=== PATIENT | male | born 1935 | race Caucasian/White ===

== ENCOUNTER → 2022-10-02 | Outpatient (CLI) | payer MEDICARE, OTHER ==
[2022-10-02 13:06] LABS: African American GFR (CKD) 61 (>60 ml/min/1.73 sqM); Blood Urea Nitrogen 35 mg/dL (9-20); Non-African American GFR(CKD) 52 (>60 ml/min/1.73 sqM)
--- NOTE | 2022-10-02 13:58 | CT ---
EXAMINATION TYPE: CT angio neck DATE OF EXAM: 10/02/2022 COMPARISON: None HISTORY: carotid stenosis CT DLP: 303.6 mGycm CONTRAST: CTA cervical carotids is performed and with IV Contrast, patient injected with 65cc mL of Isovue 370. Contrast CTA of the cervical carotids was performed 3-D reconstruction imaging obtained at a separate workstation. Right carotid system: Mild plaque is seen of the right common carotid artery. There is mild plaque a lso noted at the carotid bulb. Estimated diameter reduction is less than 40%. ECA is patent. Righ t vertebral artery appears unremarkable. Left carotid system: Mild plaque is seen of the left common carotid artery. There is moderate soft a nd partially calcified plaque also noted at the carotid bulb. Estimated diameter reduction is 80%. ECA is patent. Left vertebral artery appears unremarkable. IMPRESSION: 1. Estimated diameter reduction Right ICA less than 40% 2. Estimated diameter reduction Left ICA 80% NASCET criteria was used in interpretation of this exam?
== END | disposition home or self-care (01) ==
LOC: RADCTMAIN 12:17
PROVIDERS: ATTEND Internal Medicine
DX: I65.23 Occlusion and stenosis of bilateral carotid arteries (principal)
CPT/HCPCS: 82565; 84520; 70498; 36415; Q9967

== ENCOUNTER 2022-10-27 10:01 | Inpatient (IN) | payer MEDICARE, OTHER ==
[~2022-10-27 10:01] MED LIST: ALPRAZolam 0.25 MG TAB PO PRN; ALPRAZolam 0.5 MG TAB PO PRN; ASPIRIN 81 MG PO PRN; CLOPIDOGREL 75 MG TAB PO PRN; NITROGLYCERIN SL TABS 0.4 MG TAB SUBLINGUAL PRN; RX INFO: IV CONTRAST WAS GIVEN 1 EACH MISC MISCELLANE PRN; SODIUM CHLORIDE 0.9% 1,000 ML in EMPTY BAG 1 BAG IV ONE
[2022-10-27 10:34] LABS: Basophils % (A) 1 %; Eosinophils # (A) 0.1 k/uL (0-0.7); Eosinophils % (A) 2 %; HCT 31.3 % (39.0-53.0); HGB 10.6 gm/dL (13.0-17.5); Lymphocytes # (A) 2.1 k/uL (1.0-4.8); Lymphocytes % (A) 34 %; MCH 31.6 pg (25.0-35.0); Mean Platelet Volume 9.1; Monocytes # (A) 0.3 k/uL (0-1.0); Monocytes % (A) 4 %; Neutrophils # (A) 3.5 k/uL (1.3-7.7); Neutrophils % (A) 57 %; Platelet Count 134 k/uL (150-450); RBC 3.36 m/uL (4.30-5.90); RDW 13.3 % (11.5-15.5); WBC 6.2 k/uL (3.8-10.6)
[2022-10-27] MEDS ORDERED: LIDOCAINE 1% INJ 10MG/ML (20 ML MDV) ONE (11:44)
[2022-10-27] MEDS ORDERED: LIDOCAINE 1% INJ 10MG/ML (20 ML MDV) SQ ONE (12:17)
[2022-10-27] MEDS ORDERED: CLOPIDOGREL 75 MG TAB ONE ×2 (12:17→12:18)
[2022-10-27] MEDS ORDERED: CLOPIDOGREL 75 MG TAB PO ONE (12:23)
[2022-10-27] MEDS ORDERED: HEPARIN SODIUM 1,000 UN/ML (10ML VL) ONE (12:27)
[2022-10-27] MEDS: HEPARIN SODIUM 1,000 UN/ML (10ML VL) IV ONE ×5 (12:29→13:30)
[2022-10-27] MEDS ORDERED: ATROPINE SULFATE 0.1 MG/ML 10ML SYRINGE IVP ONE (13:30)
[2022-10-27] MEDS ORDERED: IOPAMIDOL-370 100ML BTL INJ ONE (13:36)
[2022-10-27] MEDS ORDERED: MAG HYDROX/AL HYDROX/SIMETH 30 ML CUP PO PRN (14:19)
[2022-10-27] MEDS ORDERED: ATROPINE SULFATE 0.1 MG/ML 10ML SYRINGE IV PRN (14:19)
[2022-10-27] MEDS ORDERED: SODIUM CHLORIDE 0.9% 1,000 ML IV SCH (14:30)
[2022-10-27] MEDS ORDERED: hydrALAZINE HCL 20 MG/ML 1 ML VIAL IVP STA (15:03)
[2022-10-27] MEDS: LOSARTAN 50 MG TAB PO SCH (15:14)
[2022-10-27] MEDS ORDERED: ACETAMINOPHEN TAB 325 MG TAB PO PRN (15:18)
--- NOTE | 2022-10-27 16:06 | P.PCN ---
Description of Procedure: PROCEDURES PERFORMED: Selective left carotid angiography, carotid stenting of left internal carotid artery with a 7-10 x 30mm Acculink, post dilated with a 5.0 balloon INDICATION: Severe asymptomatic carotid artery stenosis CONSENT:I have discussed the risks, benefits and alternative therapies for the above-mentioned procedure and for both sedation/analgesia as well as necessary blood product administration, if indicated, as they pertain to this patient. The patient has indicated understanding and acceptance of the risks and p rocedures discussed. PROCEDURE: After the risks, benefits and alternatives of the above mentioned procedure explained in detail with the patient, informed consent was obtained. Patient was taken to the catheterization lab and prepped and draped in usual fashion. 1% lidocaine was used to anesthetize the right femoral area. A 6- Ivorian sheath was placed in the right femoral artery using modified Seldinger technique. Next using VTK catheter the proximal left internal carotid arteries were engaged and selective angiography was performed. Angiography showed severe 80% stenosis of the proximal left internal carotid artery. The decision was made to perform carotid stenting of the left carotid artery. Shortly attempted to advance the VTK over a wide advantage wire however there was a type III aortic arch with difficulty advancing the catheter. Second attempt was at performed however again unsuccessful. Heparin was given. Therefore a long 8-Ivorian destination sheath was placed and using a 8-Ivorian FR 4 guide catheter, with a 4.0 balloon in the left external carotid artery with gentle inflation to anchor, we were able to advance the 8-Ivorian catheter up into the left common carotid artery. Next a 0.014 Emboshield MOHAMUD filter was advanced and placed in the petrous portion of the left internal carotid artery. Predilation was performed with a 4.0 balloon. Next a 7-10 x 30mm Acculink stent was advanced and deployed with stent moving somewhat more cephalad however covering the origin of the left internal carotid artery into the common carotid artery. This time was postdilated with a 5.0 balloon. Final angiograms were performed. The filter was retrieved. Preintervention there is a 80% stenosis and postintervention there is less than 20% stenosis without any dissection. A right femoral angiogram was performed and anatomoy was suitable for closure. A 6Fr Angioseal was placed with hemostasis achieved. The patient tolerated the procedure well. Patient was transported back to the post catheterization holding area in stable condition. Conscious Sedation: Patient was monitored under the direct supervision of vision of myself for conscious sedation using Versed and fentanyl for a total duration of 86 minutes FINAL IMPRESSION: 1. 80% left internal carotid artery stenosis status post carotid stenting of left internal carotid artery with a 7-10 x 30mm Acculink PLAN: 1. Aggressive risk factor modification per most recent ACC/AHA guidelines. 2. Continue Plavix and Eliquis for minimum of 3 months.
[2022-10-27] MEDS: GABAPENTIN 300 MG CAP PO SCH (20:14)
[2022-10-27] MEDS ORDERED: TAMSULOSIN 0.4 MG CAP.ER.24H PO SCH (21:00)
[2022-10-27] MEDS ORDERED: ASPIRIN 81 MG PO SCH (21:00)
[2022-10-27] MEDS ORDERED: MELOXICAM 7.5 MG TAB PO SCH (21:00)
[2022-10-28 04:33] VITALS: RESP 16
[2022-10-28] MEDS: LOSARTAN 50 MG TAB PO SCH (07:33)
[2022-10-28] MEDS: GABAPENTIN 300 MG CAP PO SCH (07:34)
[2022-10-28 07:41] VITALS: BP 150/76; PULSE 54; TEMP 97.7
[2022-10-28 08:56] LABS: Basophils % (A) 0 %; Eosinophils # (A) 0.2 k/uL (0-0.7); Eosinophils % (A) 3 %; HCT 29.6 % (39.0-53.0); HGB 9.8 gm/dL (13.0-17.5); Lymphocytes # (A) 1.8 k/uL (1.0-4.8); Lymphocytes % (A) 32 %; MCHC 33.1 g/dL (31.0-37.0); MCV 93.5 fL (80.0-100.0); Mean Platelet Volume 8.6; Monocytes # (A) 0.3 k/uL (0-1.0); Monocytes % (A) 6 %; Neutrophils # (A) 3.1 k/uL (1.3-7.7); Neutrophils % (A) 57 %; Platelet Count 131 k/uL (150-450); RBC 3.16 m/uL (4.30-5.90); RDW 13.4 % (11.5-15.5); WBC 5.4 k/uL (3.8-10.6)
[2022-10-28] MEDS ORDERED: ATORVASTATIN 10 MG TAB PO SCH (09:00)
[2022-10-28] MEDS ORDERED: APIXABAN 5 MG TAB PO SCH (09:00)
[2022-10-28] MEDS ORDERED: FERROUS SULFATE 325 MG TAB PO SCH (09:00)
[2022-10-28] MEDS ORDERED: CLOPIDOGREL 75 MG TAB PO SCH (09:00)
[2022-10-28] MEDS ORDERED: FINASTERIDE 5 MG TAB PO SCH (09:00)
[2022-10-28 09:07] LABS: African American GFR (CKD) 71 (>60 ml/min/1.73 sqM); Anion Gap 8 mmol/L; Blood Urea Nitrogen 34 mg/dL (9-20); Calcium 8.3 mg/dL (8.4-10.2); Carbon Dioxide 24 mmol/L (22-30); Chloride 108 mmol/L (98-107); Glucose 152 mg/dL (74-99); Non-African American GFR(CKD) 62 (>60 ml/min/1.73 sqM); Potassium 4.1 mmol/L (3.5-5.1); Sodium 140 mmol/L (137-145)
--- NOTE | 2022-10-28 12:32 | P.DS ---
Providers Date of admission: 10/27/22 10:01 Attending physician: Zack Umana DO Primary care physician: Oscar Johansen MD Hospital Course: This is Jesus Manuel Rodriguez, DYLAN, I'm dictating on behalf of Dr. Conte's H&P and A&P. Patient was interviewed and examined. Patient is a pleasant 87-year-old male who was admitted to the hospital by interventional cardiology for selective left carotid angiography, carotid stenting of left internal carotid artery with a 7-1030 mm Acculink, postdilated with a 5.0 balloon. Patient was found to have 80% left internal carotid artery stenosis status post carotid stenting of left internal carotid artery. Patient tolerated the procedure well, and this morning states that he is feeling fine today. He is denying chest pain, heart palpitations, shortness of breath, dizziness, or syncope. Vital signs are stable at this time. Discharge recommendations include aggressive risk factor modification per most recent ACC/AHA guidelines, as well as starting Plavix and continuing Eliquis for at least 3 months. GENERAL: Well-appearing, well-nourished and in no acute distress. NECK: Supple without JVD or thyromegaly. LUNGS: Breath sounds clear to auscultation bilaterally. Respiration equal and unlabored. No wheezes, rales or rhonchi. HEART: Regular rate and rhythm without murmurs, rubs or gallops. S1 and S2 heard. EXTREMITIES: Normal range of motion, no edema. No clubbing or cyanosis. Peripheral pulses intact and strong. VITALS: Temp 97.7, pulse 54, respirations 16, blood pressure 150/76, O2 saturation 98% on room air TELEMETRY: Normal sinus rhythm LABS: White count 5.4, hemoglobin 9.8, platelets 131, sodium 140, potassium 4.1, B1 34, creatinine 1.07, calcium 8.3 IMPRESSION: 1. Hypertension 2. Hyperlipidemia 3. History of multiple pulmonary emboli on [place] 4. CAD status post PCI in 2006 5. Dyspnea 6. Bradycardia 7. Left carotid artery stenosis, severe PLAN: Aggressive risk factor modification per most recent ACC/AHA guidelines. Continue Eliquis. Start Plavix 75 mg daily. Follow-up with Dr. Umana in the office. Patient may be discharged. Patient Condition at Discharge: Good Plan - Discharge Summary Discharge Rx Participant: No New Discharge Prescriptions: New Clopidogrel [Plavix] 75 mg PO DAILY #30 tablet Discontinued Aspirin [Adult Low Dose Aspirin EC] 81 mg PO HS No Action Gabapentin 300 mg PO BID Apixaban [Eliquis] 5 mg PO BID Oxybutynin Chloride [oxyBUTYnin chloride ER] 10 mg PO HS Simvastatin [Zocor] 20 mg PO QAM Celecoxib 100 mg PO HS Losartan [Cozaar] 100 mg PO QAM Iron 27 mg PO QAM Cyanocobalamin (Vitamin B-12) [Vitamin B-12] 25 mcg PO HS Tamsulosin [Flomax] 0.4 mg PO HS Finasteride [Proscar] 5 mg PO QAM Eye Health Complex 1 cap PO BID Discharge Medication List Apixaban [Eliquis] 5 mg PO BID 10/24/22 [History] Celecoxib 100 mg PO HS 10/24/22 [History] Cyanocobalamin (Vitamin B-12) [Vitamin B-12] 25 mcg PO HS 10/24/22 [History] Eye Health Complex 1 cap PO BID 10/24/22 [History] Finasteride [Proscar] 5 mg PO QAM 10/24/22 [History] Gabapentin 300 mg PO BID 10/24/22 [History] Iron 27 mg PO QAM 10/24/22 [History] Losartan [Cozaar] 100 mg PO QAM 10/24/22 [History] Oxybutynin Chloride [oxyBUTYnin chloride ER] 10 mg PO HS 10/24/22 [History] Simvastatin [Zocor] 20 mg PO QAM 10/24/22 [History] Tamsulosin [Flomax] 0.4 mg PO HS 10/24/22 [History] Clopidogrel [Plavix] 75 mg PO DAILY #30 tablet 10/28/22 [Rx] Follow up Appointment(s)/Referral(s): Zack Umana DO [STAFF PHYSICIAN] - 1 Week (APPOINTMENT MADE ON October @ 9:45AM ) Patient Instructions/Handouts: Carotid Artery Disease (DC), Moderate Sedation (DC), Carotid Artery Stent Placement (DC) Activity/Diet/Wound Care/Special Instructions: *NO LIFTING, PUSHING, OR PULLING ANYTHING OVER 5 POUNDS FOR 5 DAYS *NO DRIVING FOR 3 DAYS *YOU CAN REMOVE YOUR DRESSING TOMORROW AND YOU CAN SHOWER AT THAT TIME BUT DO NOT SUBMERSE YOUR PUNCTURE SITE IN WATER FOR A FEW DAYS TO PREVENT INFECTION - SO NO TUB BATHS, POOLS, HOT TUBS, DISHES...ETC *ANY SIGNS OF BLEEDING (HARDNESS, SWELLING, OR EXCESSIVE BRUISING) HOLD DIRECT PRESSURE ON YOUR PUNCTURE SITE AND COME TO THE NEAREST EMERGENCY ROOM TO GET YOUR PUNCTURE SITE LOOKED AT - DO NOT DRIVE YOURSELF! EITHER CALL EMS OR HAVE SOMEONE DRIVE YOU! Discharge Disposition: HOME SELF-CARE
--- NOTE | 2022-10-29 18:15 | IR ---
EXAMINATION TYPE: IR stent intravas non coronary DATE OF EXAM: 10/27/2022 COMPARISON: NONE HISTORY: Carotid stenosis, 31.4 minutes fluoroscopy time, total DAP 47.2 Gycm2. Fluoroscopy was provided to the referring clinician.
== END 2022-10-28 11:25 | disposition home or self-care (01) | DRG 36 ==
LOC: 2ORMAIN 10:01 → 3SCARD 14:10
PROVIDERS: ADMIT Internal Medicine; ATTEND Internal Medicine
PROC: 037 Upper Arteries, Dilation (ICD-10-PCS; principal; 2022-10-27 12:00)
DX: I65.22 Occlusion and stenosis of left carotid artery (principal); I25.10 Atherosclerotic heart disease of native coronary artery without angina pectoris; E78.5 Hyperlipidemia, unspecified; I10 Essential (primary) hypertension; Z86.711 Personal history of pulmonary embolism; Z98.61 Coronary angioplasty status; R00.1 Bradycardia, unspecified; Z79.01 Long term (current) use of anticoagulants
CPT/HCPCS: 37215; 80048; 84132; 85025

== ENCOUNTER 2023-07-16 20:07 | Inpatient (IN) | payer MEDICARE, OTHER ==
--- NOTE | 2023-07-16 20:18 | ED ---
General Adult HPI <Dwayne Dimas - Last Filed: 07/16/23 20:19> <Ada Graham - Last Filed: 07/23/23 01:23> - General Stated complaint: Dizziness Time Seen by Provider: 07/16/23 20:17 - History of Present Illness Initial comments: 87-year-old male presented to the ED with complaints of dizziness. Patient reports over the last few days he has been feeling dizzy described as feeling as if he is going to pass out/feeling "woozy". No chest pains or shortness of breath. States he saw his junior project manager earlier today and there his heart rate was noted to be 35 and was advised to present to the ED for further evaluation. (Dwayne Dimas) 87-year-old male presents emergency department reporting near syncope. Patient states that he was not feeling well earlier today. He drove himself to his cardiology appointment which was a normal scheduled appointment. He mentioned to his junior project manager that he felt lightheaded. [employer] Developer did complete an EKG and found the patient's heart rate to be 35. Because of this significantly slow heart rate with symptoms, the junior project manager did recommend that the patient be transferred over to the hospital for further evaluation. Patient does not take any AV tanvi blocking agents. He states that his heart rate is normally low however it runs in the 50s. He denies any chest pain. No other alleviating, precipitating or modifying factors (Ada Graham) - Related Data Home Medications Medication Instructions Recorded Confirmed Apixaban [Eliquis] 5 mg PO BID 10/24/22 07/17/23 Finasteride [Proscar] 5 mg PO QAM 10/24/22 07/17/23 Gabapentin 300 mg PO BID 10/24/22 07/17/23 Losartan [Cozaar] 100 mg PO QAM 10/24/22 07/17/23 Oxybutynin Chloride [oxyBUTYnin 10 mg PO HS 10/24/22 07/17/23 chloride ER] Simvastatin [Zocor] 20 mg PO HS 10/24/22 07/17/23 Tamsulosin [Flomax] 0.4 mg PO HS 10/24/22 07/17/23 Furosemide [Lasix] 20 mg PO DAILY 07/17/23 07/17/23 Allergies Allergy/AdvReac Type Severity Reaction Status Date / Time No Known Allergies Allergy Verified 07/17/23 08:01 Review of Systems ROS Other: All systems not noted in ROS Statement are negative. <Dwayne Dimas - Last Filed: 07/16/23 20:19> ROS Other: All systems not noted in ROS Statement are negative. <Ada Graham lIya - Last Filed: 07/23/23 01:23> ROS Statement: Those systems with pertinent positive or pertinent negative responses have been documented in the HPI. Past Medical History Past Medical History: Coronary Artery Disease (CAD), Hyperlipidemia, Hypertension, Pulmonary Embolus (PE), Vascular Disorder Additional Past Medical History / Comment(s): L caratid disease, bradycardia, dyspnea at times, multiple PEs History of Any Multi-Drug Resistant Organisms: None Reported Past Surgical History: Heart Catheterization With Stent, Joint Replacement Additional Past Surgical History / Comment(s): IVC insertion in 2013, 2006 PCI with stent in [place], Total R hip arthroplasty, bilateral total knee arthroplasty Past Anesthesia/Blood Transfusion Reactions: No Reported Reaction Additional Past Anesthesia/Blood Transfusion Reaction / Comment(s): Pt has never received blood. Date of Last Stent Placement:: 2006 Smoking Status: Never smoker - Past Family History Mother Family Medical History: No Reported History Father Additional Family Medical History / Comment(s): at the age of 34yrs from lymphoblastoma. <Dwayne Dimas - Last Filed: 07/16/23 20:19> General Exam <Dwayne Dimas - Last Filed: 07/16/23 20:19> General appearance: alert, in no apparent distress Head exam: Present: atraumatic, normocephalic, normal inspection Eye exam: Present: normal appearance, PERRL, EOMI. Absent: scleral icterus, conjunctival injection, periorbital swelling ENT exam: Present: normal exam, mucous membranes moist Neck exam: Present: normal inspection. Absent: tenderness, meningismus, lymphadenopathy Respiratory exam: Present: normal lung sounds bilaterally. Absent: respiratory distress, wheezes, rales, rhonchi, stridor Cardiovascular Exam: Present: normal rhythm, bradycardia, normal heart sounds. Absent: systolic murmur, diastolic murmur, rubs, gallop, clicks GI/Abdominal exam: Present: soft, normal bowel sounds. Absent: distended, tenderness, guarding, rebound, rigid Extremities exam: Present: normal inspection, full ROM, normal capillary refill. Absent: tenderness, pedal edema, joint swelling, calf tenderness Back exam: Present: normal inspection Neurological exam: Present: alert, oriented X3, CN II-XII intact Psychiatric exam: Present: normal affect, normal mood Skin exam: Present: warm, dry, intact, normal color. Absent: rash <Ada Graham - Last Filed: 07/23/23 01:23> - General Exam Comments Initial Comments: Visual Physical Exam Vital signs reviewed General: Well-appearing, nontoxic, no acute distress. Head: Normocephalic, atraumatic Eyes: PERRLA, EOMI ENT: Airway patent Chest: Nonlabored breathing Skin: No visual rash, normal skin tone Neuro: Alert and oriented 3 Musculoskeletal: No gross abnormalities (Dwayne Dimas) Course Vital Signs 07/16/23 07/16/23 07/17/23 20:28 22:18 01:46 Temperature 99.1 F 98.2 F Pulse Rate 62 43 L Pulse Rate [ 49 L Encoding Machine Operator ] Respiratory 18 16 17 Rate Blood Pressure 133/65 155/81 Blood Pressure 139/73 [Right Arm Sitting] Blood Pressure 147/72 [Right Arm Standing] Blood Pressure 156/74 [Right Arm Supine] O2 Sat by Pulse 97 95 95 Oximetry 07/17/23 07/17/23 07/17/23 04:00 05:43 07:16 Temperature Pulse Rate 48 L 44 L 42 L Pulse Rate [ Encoding Machine Operator ] Respiratory 16 17 16 Rate Blood Pressure 127/70 135/60 144/67 Blood Pressure [Right Arm Sitting] Blood Pressure [Right Arm Standing] Blood Pressure [Right Arm Supine] O2 Sat by Pulse 96 95 97 Oximetry 07/17/23 07/17/23 07/17/23 08:28 10:00 13:14 Temperature Pulse Rate 52 L 61 64 Pulse Rate [ Encoding Machine Operator ] Respiratory 16 18 18 Rate Blood Pressure 159/81 159/81 148/67 Blood Pressure [Right Arm Sitting] Blood Pressure [Right Arm Standing] Blood Pressure [Right Arm Supine] O2 Sat by Pulse 98 97 98 Oximetry Medical Decision Making <Dwayne Dimas - Last Filed: 07/16/23 20:19> - Lab Data Result diagrams: 07/17/23 02:35 07/17/23 02:35 <Ada Graham A - Last Filed: 07/23/23 01:23> - Medical Decision Making Quicknote portion performed. Signed Dwayne Dimas PA-C (Dwayne Dimas) Was pt. sent in by a medical professional or institution ([facility], EMBEDDED ENGINEER, urgent care, hospital, or penitentiary...) When possible be specific @ -Patiet sent in by junior project manager Did you speak to anyone other than the patient for history (EMS, parent, family, police, friend...)? What history was obtained from this source @ -No Did you review nursing and triage notes (agree or disagree)? Why? @ -I reviewed and agree with nursing and triage notes Were old charts reviewed (outside hosp., previous admission, EMS record, old EKG, old radiological studies, urgent care reports/EKG's, penitentiary records)? Report findings @ -No Differential Diagnosis (chest pain, altered mental status, abdominal pain women, abdominal pain men, vaginal bleeding, weakness, fever, dyspnea, syncope, headache, dizziness, GI bleed, back pain, seizure, CVA, palpatations, mental health, musculoskeletal)? @ -Differential Palpitations Ventricular arrhythmias, atrial arrhythmias, myocardial infarction, anemia, thyrotoxicosis, electrolyte imbalance, hypokalemia, pulmonary embolism, pulmonary disease, drugs, alcohol, anxiety, stress.... This is not meant to be an all-inclusive list. EKG interpreted by me (3pts min.). @ -Demonstrates sinus bradycardia with a rate of 55. OR interval 282. QRS 102. QTc of 448. No acute ST segment elevations or depressions X-rays interpreted by me (1pt min.). @ -Yes, No acute process CT interpreted by me (1pt min.). @ -None done U/S interpreted by me (1pt. min.). @ -None done What testing was considered but not performed or refused? (CT, X-rays, U/S, labs)? Why? @ -None What meds were considered but not given or refused? Why? @ -None Did you discuss the management of the patient with other professionals (professionals i.e. , BRIA, EMBEDDED ENGINEER, lab, RT, psych nurse, social services assistant, avionics technician, t myrna, earth science technical officer, director of casework department)? Give summary @ -Kaylee from [facility] Was smoking cessation discussed for >3mins.? @ -No Was critical care preformed (if so, how long)? @ -No Were there social determinants of health that impacted care today? How? (Homelessness, low income, unemployed, alcoholism, drug addiction, transportation, low edu. Level, literacy, decrease access to med. care, long term, rehab)? @ -No Was there de-escalation of care discussed even if they declined (Discuss DNR or withdrawal of care, Hospice)? DNR status @ -No What co-morbidities impacted this encounter? (DM, HTN, Smoking, COPD, CAD, Cancer, CVA, ARF, Chemo, Hep., AIDS, mental health diagnosis, sleep apnea, morbid obesity)? @ -None Was patient admitted / discharged? Hospital course, mention meds given and route, prescriptions, significant lab abnormalities, going to OR and other pertinent info. @ -Patient seen and evaluated in room 12. Heart rate is 55 at this time. Will admit patient for cardiac monitoring and cardio evaluation. Spoke with kaylee for admission Undiagnosed new problem with uncertain prognosis? @ -yes Drug Therapy requiring intensive monitoring for toxicity (Heparin, Nitro, Insulin, Cardizem)? @ -No Were any procedures done? @ -No Diagnosis/symptom? @ -near syncope, bradycardia Acute, or Chronic, or Acute on Chronic? @ -acute Uncomplicated (without systemic symptoms) or Complicated (systemic symptoms)? @ -complicated Side effects of treatment? @ -No Exacerbation, Progression, or Severe Exacerbation? @ -No Poses a threat to life or bodily function? How? (Chest pain, [place], [place], pneumonia, PE, COPD, DKA, ARF, appy, cholecystitis, CVA, Diverticulitis, Homicidal, Suicidal, threat to staff... and all critical care pts) @ -No (Ada Graham) - Lab Data Lab Results 07/16/23 07/16/23 07/16/23 Range/Units 20:33 20:33 20:33 WBC 5.9 (3.8-10.6) k/uL RBC 3.39 L (4.30-5.90) m/uL Hgb 10.3 L (13.0-17.5) gm/dL Hct 31.8 L (39.0-53.0) % MCV 93.9 (80.0-100.0) fL MCH 30.4 (25.0-35.0) pg MCHC 32.4 (31.0-37.0) g/dL RDW 12.7 (11.5-15.5) % Plt Count 167 (150-450) k/uL MPV 7.9 Neutrophils % 56 % Lymphocytes % 30 % Monocytes % 6 % Eosinophils % 6 % Basophils % 1 % Neutrophils # 3.3 (1.3-7.7) k/uL Lymphocytes # 1.8 (1.0-4.8) k/uL Monocytes # 0.4 (0-1.0) k/uL Eosinophils # 0.3 (0-0.7) k/uL Basophils # 0.0 (0-0.2) k/uL PT 10.4 (10.0-12.5) sec INR 0.9 (<1.2) APTT 22.6 (22.0-30.0) sec Sodium 139 (137-145) mmol/L Potassium 3.8 (3.5-5.1) mmol/L Chloride 105 (98-107) mmol/L Carbon Dioxide 26 (22-30) mmol/L Anion Gap 8 mmol/L BUN 32 H (9-20) mg/dL Creatinine 1.18 (0.66-1.25) mg/dL Est GFR (CKD-EPI)AfAm 63 (>60 ml/min/1.73 sqM) Est GFR (CKD-EPI)NonAf 54 (>60 ml/min/1.73 sqM) Glucose 142 H (74-99) mg/dL Calcium 8.5 (8.4-10.2) mg/dL Magnesium 1.9 (1.6-2.3) mg/dL Total Bilirubin 0.5 (0.2-1.3) mg/dL AST 28 (17-59) U/L ALT 16 (4-49) U/L Alkaline Phosphatase 70 (38-126) U/L Troponin I (0.000-0.034) ng/mL Total Protein 6.6 (6.3-8.2) g/dL Albumin 3.6 (3.5-5.0) g/dL TSH (0.465-4.680) mIU/L 07/16/23 07/16/23 07/17/23 Range/Units 20:33 20:33 02:35 WBC (3.8-10.6) k/uL RBC (4.30-5.90) m/uL Hgb (13.0-17.5) gm/dL Hct (39.0-53.0) % MCV (80.0-100.0) fL MCH (25.0-35.0) pg MCHC (31.0-37.0) g/dL RDW (11.5-15.5) % Plt Count (150-450) k/uL MPV Neutrophils % % Lymphocytes % % Monocytes % % Eosinophils % % Basophils % % Neutrophils # (1.3-7.7) k/uL Lymphocytes # (1.0-4.8) k/uL Monocytes # (0-1.0) k/uL Eosinophils # (0-0.7) k/uL Basophils # (0-0.2) k/uL PT (10.0-12.5) sec INR (<1.2) APTT (22.0-30.0) sec Sodium (137-145) mmol/L Potassium (3.5-5.1) mmol/L Chloride (98-107) mmol/L Carbon Dioxide (22-30) mmol/L Anion Gap mmol/L BUN (9-20) mg/dL Creatinine (0.66-1.25) mg/dL Est GFR (CKD-EPI)AfAm (>60 ml/min/1.73 sqM) Est GFR (CKD-EPI)NonAf (>60 ml/min/1.73 sqM) Glucose (74-99) mg/dL Calcium (8.4-10.2) mg/dL Magnesium (1.6-2.3) mg/dL Total Bilirubin (0.2-1.3) mg/dL AST (17-59) U/L ALT (4-49) U/L Alkaline Phosphatase (38-126) U/L Troponin I <0.012 <0.012 (0.000-0.034) ng/mL Total Protein (6.3-8.2) g/dL Albumin (3.5-5.0) g/dL TSH 2.620 (0.465-4.680) mIU/L 07/17/23 07/17/23 07/17/23 Range/Units 02:35 02:35 09:31 WBC 5.8 (3.8-10.6) k/uL RBC 3.14 L (4.30-5.90) m/uL Hgb 9.6 L (13.0-17.5) gm/dL Hct 29.8 L (39.0-53.0) % MCV 94.9 (80.0-100.0) fL MCH 30.7 (25.0-35.0) pg MCHC 32.3 (31.0-37.0) g/dL RDW 12.8 (11.5-15.5) % Plt Count 144 L (150-450) k/uL MPV 8.1 Neutrophils % 54 % Lymphocytes % 30 % Monocytes % 6 % Eosinophils % 8 % Basophils % 1 % Neutrophils # 3.1 (1.3-7.7) k/uL Lymphocytes # 1.7 (1.0-4.8) k/uL Monocytes # 0.4 (0-1.0) k/uL Eosinophils # 0.4 (0-0.7) k/uL Basophils # 0.0 (0-0.2) k/uL PT (10.0-12.5) sec INR (<1.2) APTT (22.0-30.0) sec Sodium 140 (137-145) mmol/L Potassium 3.6 (3.5-5.1) mmol/L Chloride 109 H (98-107) mmol/L Carbon Dioxide 29 (22-30) mmol/L Anion Gap 2 mmol/L BUN 30 H (9-20) mg/dL Creatinine 1.20 (0.66-1.25) mg/dL Est GFR (CKD-EPI)AfAm 62 (>60 ml/min/1.73 sqM) Est GFR (CKD-EPI)NonAf 53 (>60 ml/min/1.73 sqM) Glucose 128 H (74-99) mg/dL Calcium 8.2 L (8.4-10.2) mg/dL Magnesium (1.6-2.3) mg/dL Total Bilirubin (0.2-1.3) mg/dL AST (17-59) U/L ALT (4-49) U/L Alkaline Phosphatase (38-126) U/L Troponin I <0.012 (0.000-0.034) ng/mL Total Protein (6.3-8.2) g/dL Albumin (3.5-5.0) g/dL TSH (0.465-4.680) mIU/L Disposition <Dwayne Dimas - Last Filed: 07/16/23 20:19> Is patient prescribed a controlled substance at d/c from ED?: No Time of Disposition: 22:07 Decision to Admit Reason: Admit from EC Decision Date: 07/16/23 Decision Time: 22:07 <Ada Graham - Last Filed: 07/23/23 01:23> Clinical Impression: Bradycardia Disposition: ADMITTED IP TO THIS HOSP Condition: Stable
[2023-07-16 20:58] LABS: Basophils % (A) 1 %; Eosinophils # (A) 0.3 k/uL (0-0.7); Eosinophils % (A) 6 %; HCT 31.8 % (39.0-53.0); HGB 10.3 gm/dL (13.0-17.5); Lymphocytes # (A) 1.8 k/uL (1.0-4.8); Lymphocytes % (A) 30 %; MCH 30.4 pg (25.0-35.0); MCHC 32.4 g/dL (31.0-37.0); MCV 93.9 fL (80.0-100.0); Mean Platelet Volume 7.9; Monocytes # (A) 0.4 k/uL (0-1.0); Monocytes % (A) 6 %; Neutrophils # (A) 3.3 k/uL (1.3-7.7); Neutrophils % (A) 56 %; Platelet Count 167 k/uL (150-450); RBC 3.39 m/uL (4.30-5.90); RDW 12.7 % (11.5-15.5); WBC 5.9 k/uL (3.8-10.6)
[2023-07-16 21:06] LABS: INR 0.9 (<1.2); Partial Thromboplastin Time 22.6 sec (22.0-30.0); Prothrombin Time 10.4 sec (10.0-12.5)
[2023-07-16 21:11] LABS: ALT 16 U/L (4-49); AST 28 U/L (17-59); African American GFR (CKD) 63 (>60 ml/min/1.73 sqM); Albumin 3.6 g/dL (3.5-5.0); Alkaline Phosphatase 70 U/L (38-126); Anion Gap 8 mmol/L; Blood Urea Nitrogen 32 mg/dL (9-20); Calcium 8.5 mg/dL (8.4-10.2); Carbon Dioxide 26 mmol/L (22-30); Chloride 105 mmol/L (98-107); Glucose 142 mg/dL (74-99); Magnesium 1.9 mg/dL (1.6-2.3); Non-African American GFR(CKD) 54 (>60 ml/min/1.73 sqM); Potassium 3.8 mmol/L (3.5-5.1); Sodium 139 mmol/L (137-145); Total Bilirubin 0.5 mg/dL (0.2-1.3); Total Protein 6.6 g/dL (6.3-8.2)
--- NOTE | 2023-07-16 21:42 | XR ---
EXAMINATION TYPE: XR chest 2V DATE OF EXAM: 07/16/2023 9:13 PM CLINICAL INDICATION:Male, 87 years old with history of Chest Pain; [facility] COMPARISON: Chest radiographs from 07/16/2023 TECHNIQUE: XR chest 2V Frontal and lateral views of the chest. FINDINGS: Lungs/Pleura: There is no evidence of pleural effusion, focal consolidation, or pneumothorax. Pulmonary vascularity: Unremarkable. Heart/mediastinum: Cardiomediastinal silhouette is unremarkable. Musculoskeletal: No acute osseous pathology. Other findings: None IMPRESSION: No acute cardiopulmonary disease/process.
[2023-07-16] MEDS ORDERED: NALOXONE 0.4 MG/ML 1 ML VIAL IV PRN (22:10)
[2023-07-17 03:06] LABS: Basophils % (A) 1 %; Eosinophils # (A) 0.4 k/uL (0-0.7); Eosinophils % (A) 8 %; HCT 29.8 % (39.0-53.0); HGB 9.6 gm/dL (13.0-17.5); Lymphocytes # (A) 1.7 k/uL (1.0-4.8); Lymphocytes % (A) 30 %; MCH 30.7 pg (25.0-35.0); MCHC 32.3 g/dL (31.0-37.0); MCV 94.9 fL (80.0-100.0); Mean Platelet Volume 8.1; Monocytes # (A) 0.4 k/uL (0-1.0); Monocytes % (A) 6 %; Neutrophils # (A) 3.1 k/uL (1.3-7.7); Neutrophils % (A) 54 %; Platelet Count 144 k/uL (150-450); RBC 3.14 m/uL (4.30-5.90); RDW 12.8 % (11.5-15.5); WBC 5.8 k/uL (3.8-10.6)
[2023-07-17 03:17] LABS: African American GFR (CKD) 62 (>60 ml/min/1.73 sqM); Anion Gap 2 mmol/L; Blood Urea Nitrogen 30 mg/dL (9-20); Calcium 8.2 mg/dL (8.4-10.2); Carbon Dioxide 29 mmol/L (22-30); Chloride 109 mmol/L (98-107); Glucose 128 mg/dL (74-99); Non-African American GFR(CKD) 53 (>60 ml/min/1.73 sqM); Potassium 3.6 mmol/L (3.5-5.1); Sodium 140 mmol/L (137-145)
[2023-07-17] MEDS: FUROSEMIDE 20 MG TAB PO SCH (08:26)
[2023-07-17] MEDS: LOSARTAN 50 MG TAB PO SCH (08:28)
--- NOTE | 2023-07-17 09:32 | US ---
EXAMINATION TYPE: US carotid duplex BILAT DATE OF EXAM: 07/17/2023 COMPARISON: NONE CLINICAL INDICATION: Male, 87 years old with history of syncope; h/o left ICA stenting, stroke years ago TECHNIQUE: Carotid duplex ultrasound examination. Indirect Doppler criteria was utilized. FINDINGS: EXAM MEASUREMENTS: RIGHT: Peak Systolic Velocity (PSV) cm/sec ----- Right CCA: 66.8 ----- Right ICA: 119.4 ----- Right ECA: 82.8 ICA/CCA ratio: 1.8 RIGHT: End Diastole cm/sec ----- Right CCA: 15.4 ----- Right ICA: 31.5 ----- Right ECA: 6.9 LEFT: Peak Systolic Velocity (PSV) cm/sec ----- Left CCA: 68.6 ----- Left ICA: 283.2 ----- Left ECA: 125.0 ICA/CCA ratio: 4.1 LEFT: End Diastole cm/sec ----- Left CCA: 12.7 ----- Left ICA: 60.2 ----- Left ECA: 12.4 VERTEBRALS (direction of flow): Right Vertebral: Antegrade Left Vertebral: Antegrade Rhythm: Arrhythmia INCLUSION SPECIAL EDUCATION TEACHER NOTES: Increased velocities within left ICA at stenting IMPRESSION: 1. Greater than 70% stenosis of the left carotid bifurcation. 2. Less than 50% stenosis of the right carotid bifurcations Criteria for Assigning % of Stenosis / Diameter reduction (Estimation based on the indirect measurements of the internal carotid artery velocities (ICA PSV). 1. Normal (no stenosis)=ICA PSV < 125 cm/s: ratio < 2.0: ICA EDV<40 cm/s. 2. Less than 50% stenosis=ICA PSV < 125 cm/s: ratio < 2.0: ICA EDV<40 cm/s. 3. 50 to 69% stenosis=ICA PSV of 125 to 230 cm/s: ration 2.0 ? 4.0: ICA EDV 40-100 cm/s. 4. Greater than 70% stenosis to near occlusion= ICA PSV > 230 cm/s: ratio > 4.0: ICA EDV > 100 cm/s. 5. Near occlusion= ICA PSV velocities may be low or undetectable: variable ratio and ICA EDV. 6. Total occlusion=unable to detect flow.
--- NOTE | 2023-07-17 10:49 | P.CRDCN ---
History of Present Illness Consult date: 07/17/23 Consult reason: sycope (bradycardia) History of present illness: History of present illness: This is an 87-year-old male patient of Dr. 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 Patient had a follow-up appointment with Dr. Umana yesterday and he was found to have a heart rate of 35. Patient states that he has had dizzy sensation when he gets up to a standing position. Patient was sent directly to the emergency center for further evaluation and treatment. Patient denies having any syncopal episo jb, no chest pain and no shortness of breath. He states his heart rate often runs in the 40s and 50s but never in the 30s. Patient is not on any AV blocking agents. Patient is seen today in the emergency center waiting for a bed on the observation unit. EKG sinus rhythm with prolonged first-degree AV block Chest x-ray: No acute process WBC 5.8, hemoglobin 9.6, platelet count 144. Sodium 140, potassium 3.6, BUN 30 creatinine 1.2. Blood sugar 128. Troponin negative x 1 Home cardiac medications: Eliquis 5 mg twice daily, Lasix 20 mg daily, losartan 100 mg daily, simvastatin 20 mg at bedtime. Echocardiogram performed in the office on 08/01/2022 revealed EF of 55%. Mild aortic regurgitation. 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 Trace to mild mitral regurgitation. Trace tricuspid regurgitation. Carotid ultrasound performed on 01/23/2023 revealed right ICA 16 to 49%, left ICA 50 to 79%., Elevated velocities can be related to stent. Review Of Systems: At the time of my exam: CONSTITUTIONAL: Denies fever or chills. HEENT: Denies blurred vision, vision changes, or eye pain. Denies hemoptysis CARDIOVASCULAR: Denies chest pain. Denies orthopnea. Denies PND. Denies palpitations RESPIRATORY: Denies shortness of breath. Mild dizziness with moving to standing position. GASTROINTESTINAL: Denies abdominal pain. Denies nausea or vomiting. HEMATOLOGIC: Denies bleeding disorders. GENITOURINARY: Denies any blood in urine. SKIN: Denies pruitis. Denies rash. Physical examination: Gen: This is an 87-year-old male in no acute distress. VS: reviewed, blood pressure 159/81, heart rate 52, pulse ox 98% on room air. HEENT: Head is atraumatic, normocephalic. Pupils equal, round. Sclerae is ani cteric. LUNGS: Clear to auscultation. No wheezes or rhonchi. No intercostal retractions. HEART: Regular rate and rhythm. No murmur. ABDOMEN: Soft No tenderness. EXTREMITIES: No pedal edema. No calf tenderness. NEUROLOGICAL: Patient is awake, alert and oriented x3. Assessment: Symptomatic bradycardia with prolonged first-degree AV block Rule out acute coronary syndrome History of hypertension Hyperlipidemia Multiple pulmonary emboli on Eliquis Left carotid stenosis status post stenting 10/2022 Plan: Resume patient's home cardiac medications Hold Eliquis Obtain 2-D echocardiogram and Doppler study to assess cardiac structure and function Obtain carotid ultrasound Repeat troponins Schedule patient for permanent pacemaker implantation this afternoon with Dr. Umana N.p.o. after light breakfast Further recommendations to follow based upon clinical course Thank you kindly for this consultation. Nurse practitioner note has been reviewed, I agree with documented findings and plan of care. Patient was seen and examined. Past Medical History Past Medical History: Coronary Artery Disease (CAD), Hyperlipidemia, Hypertension, Prostate Disorder, Pulmonary Embolus (PE), Vascular Disorder Additional Past Medical History / Comment(s): L caratid disease, bradycardia, dyspnea at times, multiple PEs History of Any Multi-Drug Resistant Organisms: None Reported Past Surgical History: Heart Catheterization With Stent, Joint Replacement Additional Past Surgical History / Comment(s): IVC insertion in 2013, 2006 PCI with stent in [place], Total R hip arthroplasty, bilateral total knee arthroplasty Past Anesthesia/Blood Transfusion Reactions: No Reported Reaction Additional Past Anesthesia/Blood Transfusion Reaction / Comment(s): Pt has never received blood. Date of Last Stent Placement:: 2006 Smoking Status: Never smoker Past Alcohol Use History: None Reported Past Drug Use History: None Reported - Past Family History Mother Family Medical History: No Reported History Father Additional Family Medical History / Comment(s): at the age of 34yrs from lymphoblastoma. Medications and Allergies Home Medications Medication Instructions Recorded Confirmed Type Apixaban [Eliquis] 5 mg PO BID 10/24/22 07/17/23 History Finasteride [Proscar] 5 mg PO QAM 10/24/22 07/17/23 History Gabapentin 300 mg PO BID 10/24/22 07/17/23 History Losartan [Cozaar] 100 mg PO QAM 10/24/22 07/17/23 History Oxybutynin Chloride [oxyBUTYnin 10 mg PO HS 10/24/22 07/17/23 History chloride ER] Simvastatin [Zocor] 20 mg PO HS 10/24/22 07/17/23 History Tamsulosin [Flomax] 0.4 mg PO HS 10/24/22 07/17/23 History Furosemide [Lasix] 20 mg PO DAILY 07/17/23 07/17/23 History Allergies Allergy/AdvReac Type Severity Reaction Status Date / Time No Known Allergies Allergy Verified 07/17/23 08:01 Physical Exam Vitals: Vital Signs Temp Pulse Pulse Resp BP BP BP 07/17/23 07:16 42 L 16 144/67 07/17/23 05:43 44 L 17 135/60 07/17/23 04:00 48 L 16 127/70 07/17/23 01:46 43 L 17 155/81 07/16/23 22:18 98.2 F 49 L 16 139/73 147/72 07/16/23 20:28 99.1 F 62 18 133/65 BP Pulse Ox 07/17/23 07:16 97 07/17/23 05:43 95 07/17/23 04:00 96 07/17/23 01:46 95 07/16/23 22:18 156/74 95 07/16/23 20:28 97 Intake and Output 07/16/23 07/17/23 07/17/23 22:59 06:59 14:59 Output Total 500 Balance -500 Output: Urine 500 Other: Weight 97.522 kg Results 07/17/23 02:35 07/17/23 02:35 Cardiac Enzymes 07/16/23 07/16/23 07/17/23 Range/Units 20:33 20:33 02:35 AST 28 (17-59) U/L Troponin I <0.012 <0.012 (0.000-0.034) ng/mL Coagulation 07/16/23 Range/Units 20:33 PT 10.4 (10.0-12.5) sec APTT 22.6 (22.0-30.0) sec CBC 07/16/23 07/17/23 Range/Units 20:33 02:35 WBC 5.9 5.8 (3.8-10.6) k/uL RBC 3.39 L 3.14 L (4.30-5.90) m/uL Hgb 10.3 L 9.6 L (13.0-17.5) gm/dL Hct 31.8 L 29.8 L (39.0-53.0) % Plt Count 167 144 L (150-450) k/uL Comprehensive Metabolic Panel 07/16/23 07/17/23 Range/Units 20:33 02:35 Sodium 139 140 (137-145) mmol/L Potassium 3.8 3.6 (3.5-5.1) mmol/L Chloride 105 109 H (98-107) mmol/L Carbon Dioxide 26 29 (22-30) mmol/L BUN 32 H 30 H (9-20) mg/dL Creatinine 1.18 1.20 (0.66-1.25) mg/dL Glucose 142 H 128 H (74-99) mg/dL Calcium 8.5 8.2 L (8.4-10.2) mg/dL AST 28 (17-59) U/L ALT 16 (4-49) U/L Alkaline Phosphatase 70 (38-126) U/L Total Protein 6.6 (6.3-8.2) g/dL Albumin 3.6 (3.5-5.0) g/dL Current Medications Generic Name Dose Route Start Last Admin Trade Name Freq PRN Reason Stop Dose Admin Naloxone HCl 0.2 mg 07/16/23 22:10 Naloxone 0.4 Mg/Ml 1 Ml Vial IV Q2M PRN Opioid Reversal Intake and Output 07/16/23 07/17/23 07/17/23 22:59 06:59 14:59 Output Total 500 Balance -500 Output: Urine 500 Other: Weight 97.522 kg 07/17/23 02:35 07/17/23 02:35
[2023-07-17] MEDS: SODIUM CHLORIDE 0.9% 1,000 ML IV ONE (14:28)
[2023-07-17] MEDS: MIDAZOLAM HCL 10 MG/10 ML VIAL IVP ONE (14:28)
[2023-07-17] MEDS: fentaNYL (PF) 50 MCG/ML 2 ML AMP IVP ONE (14:29)
[2023-07-17] MEDS: ceFAZolin 1,000 MG in SODIUM CHLORIDE 0.9% IRRIG BTL 250 ML IRRIGATION ONE (15:05)
[2023-07-17] MEDS: LIDOCAINE 1% INJ 10MG/ML (20 ML MDV) SQ ONE ×3 (15:06→15:23)
[2023-07-17] MEDS: MIDAZOLAM 2 MG/2 ML VIAL IVP ONE (15:54)
[2023-07-17] MEDS: fentaNYL (PF) 50 MCG/1 ML VIAL IVP ONE (15:54)
[2023-07-17] MEDS ORDERED: ACETAMINOPHEN TAB 325 MG TAB PO PRN (16:21)
--- NOTE | 2023-07-17 16:21 | P.PCN ---
Description of Procedure: CARDIOLOGY PROCEDURE NOTE Client Service Executive: Dr. Zack Umana Procedure performed: Insertion dual chamber permanent pacemaker Site: Left subclavian Indications: Sick Sinus Syndrome, Symptomatic bradycardia without reversible causes Complications: None Blood Loss: Minimal Description of Procedure: After the risks, benefits, and alternatives of the above-mentioned procedure was explained in detail with the patient, informed consent was obtained. The patient was taken to the cardiac catheterization suite where the left subclavian area was sterily prepped and draped in the usual fashion. One percent lidocaine was used to anesthetize the left subclavian area. Twenty milliliters of Isoview 370 contrast was injected into the left antecubital vein to allow for direct visualization of the left subclavian vein under fluoroscopy. A 1.5 inch incision was made utilizing a #15 blade in the left subclavian site. Hemostasis was made complete. Electrocautery along with digital blunt dissection was utilized to dissect to the level of the pectoralis muscle fascia and create a pocket large enough to accommodate the generator. A thin walled micro puncuture needle was used to cannulate the left subclavian vein. A guide-wire was inserted through the needle into the vascular lumen under fluoroscopic guidance. The needle was removed. Another thin walled micr puncture needle was used to again cannulate the left subclavian vein. A guide-wire was inserted through the needle into the vascular lumen under fluoroscopic guidance. The needle was removed and both guide-wires were attached to the field. A venous sheath and dilator were advanced over the guidewire into the vascular lumen under fluoroscopic guidance. The dilator and guidewire were then removed. A right ventricular bipolar lead was inserted into the sheath and advanced under fluoroscopic guidance into the right ventricle under fluoroscopic guidance. Adequate sensing and pacing thresholds were achieved and the lead was screwed into place in the RV apex. The sheath was then torn away. The lead collar was advanced and anchored into place utilizing #0 silk suture. Next, another venous sheath and dilator were advanced under fluoroscopic guidance into the vascular lumen over the guidewire. After removal of the dilator and guidewire, a right atrial bipolar lead was inserted into this sheath and advanced under fluoroscopic guidance into the right atrium. The lead was positioned into the right atrial appendage. Adequate sensing and pacing thresholds were then achieved with patient being in Aflutter at the time and the lead was screwed into place. The sheath was then torn away. The lead collar was advanced and anchored into place utilizing #0 silk suture. The leads were then inserted into the appropriate position into the generator. They were then secured with the setscrew provided. The leads and generator were inserted into the pocket with the leads posterior. The subcutaneous tissue was approximated utilizing #2.0 and 3.0 vicryl in an interrupted stitch fashion. The dermal layer was approximated utilizing #4.0 vicryl. The area was cleansed with sterile saline and dried. A sterile 4x4 dressing was applied and the patient was transferred to the post catheterization holding area in stable and satisfactory condition. The patient tolerated the p rocedure well. Generator Data Journeyman Plumber: [employer] Brand: [id number] Jocelyne XT DR MRI Model #: [id number] Serial#: [id number] Right Atrial Bipolar Lead Data: Type: Active fixation lead Journeyman Plumber: [employer] Model#: 5076-52 Serial Number: [id number] Right Ventricular Bipolar Lead Data: Type: Active fixation lead Journeyman Plumber: [employer] Model #: 5076-58 Serial #: [id number] Stimulation Thresholds: Right atrial bipolar lead pacing and sensing thresholds Voltage: 0.75 Impedance: 532 ohms P-wave sensin.0 mV Right Ventricular bipolar lead pacing and sensing thresholds Pulse Width: 0.4ms Voltage: 0.5 volts Impedance: 893 ohms R-wave sensin.6 mV Parameter Setting: Pacing mode is AAIR<=>DDDR Lower rate 60 bpm Upper rate 120 bpm Impressions: 1. Successful implantation of a dual chamber permanent pacemaker in the left pectoral site. Plan: 1. Routine post procedure care will be instituted as well as outpatient follow- up surveillance.
--- NOTE | 2023-07-17 18:28 | XR ---
EXAMINATION TYPE: XR chest 1V portable DATE OF EXAM: 07/17/2023 COMPARISON: 07/16/2023 INDICATION: Lead placement check TECHNIQUE: Single frontal view of the chest is obtained. FINDINGS: The heart size is mildly prominent. The pulmonary vasculature is normal. The lungs are clear. There is some placement of a pacemaker overlies the left chest. 2 leads are in typical orientation. IMPRESSION: 1. Mild cardiomegaly. 2. Pacemaker leads typical orientation
[2023-07-17] MEDS: SODIUM CHLORIDE 0.9% 1,000 ML IV SCH (19:13)
--- NOTE | 2023-07-17 20:43 | P.HPIM ---
History of Present Illness H&P Date: 07/17/23 This is a 87-year-old male with medical history of coronary artery disease with prior cardiac stenting in 2006, hypertension, hyperlipidemia, pulmonary embolism, never smoker. Patient states that he was at a routine cardiology visit with his normal sole ruffer Dr. Umana when he was noted to have a low heart rate into the 30s. Patient was sent into the hospital for further evaluation. Patient did report having a dizzy episode when he was standing at that time. He denied any syncopal episodes he has not been having any chest discomfort he denies any shortness of breath. Patient has no nausea vomiting or diarrhea no recent illness. Patient does state that his heart rate often is low but never that low and he is not on any AV blocking medications. Patient was admitted to the hospital under medicine with a consult placed to cardiology. He was admitted to the observation unit and he is scheduled to undergo a permanent pacemaker implantation later on this afternoon. Chest x-ray on admission reveals no active cardiopulmonary disease. His EKG reveals sinus bradycardia heart rate of 55 with a first-degree AV block. His blood count reveals white blood cell count of 5.9, hemoglobin 10.3, platelet count of 167. His BUN is 32 creatinine is 1.18 his blood glucose is 142. Troponin level is negative x 3 and a TSH was normal at 2.620. REVIEW OF SYSTEMS: CONSTITUTIONAL: No fever, no malaise, no fatigue. HEENT: No recent visual problems or hearing problems. Denied any sore throat. CARDIOVASCULAR: No chest pain, orthopnea, PND, no palpitations, no syncope. PULMONARY: No shortness of breath, no cough, no hemoptysis. GASTROINTESTINAL: No diarrhea, no nausea, no vomiting, no abdominal pain. NEUROLOGICAL: No headaches, no weakness, no numbness. HEMATOLOGICAL: Denies any bleeding or petechiae. GENITOURINARY: Denies any burning micturition, frequency, or urgency. MUSCULOSKELETAL/RHEUMATOLOGICAL: Denies any joint pain, swelling, or any muscle pain. ENDOCRINE: Denies any polyuria or polydipsia. The rest of the 14-point review of systems is negative. PHYSICAL EXAMINATION: GENERAL: The patient is alert and oriented x3, not in any acute distress. Well developed, well nourished. HEENT: Pupils are round and equally reacting to light. EOMI. No scleral icterus. No conjunctival pallor. Normocephalic, atraumatic. No pharyngeal erythema. No thyromegaly. CARDIOVASCULAR: S1 and S2 present. No murmurs, rubs, or gallops. PULMONARY: Chest is clear to auscultation, no wheezing or crackles. ABDOMEN: Soft, nontender, nondistended, normoactive bowel sounds. No palpable organomegaly. MUSCULOSKELETAL: No joint swelling or deformity. EXTREMITIES: No cyanosis, clubbing, or pedal edema. NEUROLOGICAL: Gross neurological examination did not reveal any focal deficits. SKIN: No rashes. Assessment and plan Symptomatic bradycardia patient will undergo a permanent pacemaker implantation later this afternoon with cardiology he will be admitted in observation and will continue on cardiac telemetry History of coronary artery disease with prior PCI in 2006 History of hypertension maintained on losartan which has been resumed History of hyperlipidemia patient was resumed on statin therapy to begin this evening History of pulmonary embolism anticoagulated with Eliquis on outpatient basis which has been resumed this hospital stay History of carotid artery stenosis History of BPH maintained on finasteride which has been resumed GI prophylaxis DVT prophylaxis Full code The impression and plan of care has been dictated by Britt Watson Nurse Practitioner as directed. Dr. Aleks MD I have performed a history and physical examination and medical decision making of this patient, discussed the same with the dictator, and agree with the dictators assessment and plan as written, documented as a scribe. Based on total visit time, I have performed more than 50% of this visit. Past Medical History Past Medical History: Coronary Artery Disease (CAD), Hyperlipidemia, Hypertension, Prostate Disorder, Pulmonary Embolus (PE), Vascular Disorder Additional Past Medical History / Comment(s): L caratid disease, bradycardia, dyspnea at times, multiple PEs History of Any Multi-Drug Resistant Organisms: None Reported Past Surgical History: Heart Catheterization With Stent, Joint Replacement Additional Past Surgical History / Comment(s): IVC insertion in 2013, 2006 PCI with stent in [place], Total R hip arthroplasty, bilateral total knee arthroplasty Past Anesthesia/Blood Transfusion Reactions: No Reported Reaction Additional Past Anesthesia/Blood Transfusion Reaction / Comment(s): Pt has never received blood. Date of Last Stent Placement:: 2006 Smoking Status: Never smoker Past Alcohol Use History: None Reported Past Drug Use History: None Reported - Past Family History Mother Family Medical History: No Reported History Father Additional Family Medical History / Comment(s): at the age of 34yrs from lymphoblastoma. Medications and Allergies Home Medications Medication Instructions Recorded Confirmed Type Apixaban [Eliquis] 5 mg PO BID 10/24/22 07/17/23 History Finasteride [Proscar] 5 mg PO QAM 10/24/22 07/17/23 History Gabapentin 300 mg PO BID 10/24/22 07/17/23 History Losartan [Cozaar] 100 mg PO QAM 10/24/22 07/17/23 History Oxybutynin Chloride [oxyBUTYnin 10 mg PO HS 10/24/22 07/17/23 History chloride ER] Simvastatin [Zocor] 20 mg PO HS 10/24/22 07/17/23 History Tamsulosin [Flomax] 0.4 mg PO HS 10/24/22 07/17/23 History Furosemide [Lasix] 20 mg PO DAILY 07/17/23 07/17/23 History Allergies Allergy/AdvReac Type Severity Reaction Status Date / Time No Known Allergies Allergy Verified 07/17/23 08:01 Physical Exam Vitals: Vital Signs Temp Pulse Pulse Resp BP BP BP 07/17/23 10:00 61 18 159/81 07/17/23 08:28 52 L 16 159/81 07/17/23 07:16 42 L 16 144/67 07/17/23 05:43 44 L 17 135/60 07/17/23 04:00 48 L 16 127/70 07/17/23 01:46 43 L 17 155/81 07/16/23 22:18 98.2 F 49 L 16 139/73 147/72 07/16/23 20:28 99.1 F 62 18 133/65 BP Pulse Ox 07/17/23 10:00 97 07/17/23 08:28 98 07/17/23 07:16 97 07/17/23 05:43 95 07/17/23 04:00 96 07/17/23 01:46 95 07/16/23 22:18 156/74 95 07/16/23 20:28 97 Intake and Output 07/16/23 07/17/23 07/17/23 22:59 06:59 14:59 Output Total 500 Balance -500 Output: Urine 500 Other: Weight 97.522 kg Results CBC & Chem 7: 07/17/23 02:35 07/17/23 02:35 Labs: Abnormal Lab Results - Last 24 Hours (Table) 07/16/23 07/16/23 07/17/23 Range/Units 20:33 20:33 02:35 RBC 3.39 L 3.14 L (4.30-5.90) m/uL Hgb 10.3 L 9.6 L (13.0-17.5) gm/dL Hct 31.8 L 29.8 L (39.0-53.0) % Plt Count 144 L (150-450) k/uL Chloride (98-107) mmol/L BUN 32 H (9-20) mg/dL Glucose 142 H (74-99) mg/dL Calcium (8.4-10.2) mg/dL 07/17/23 Range/Units 02:35 RBC (4.30-5.90) m/uL Hgb (13.0-17.5) gm/dL Hct (39.0-53.0) % Plt Count (150-450) k/uL Chloride 109 H (98-107) mmol/L BUN 30 H (9-20) mg/dL Glucose 128 H (74-99) mg/dL Calcium 8.2 L (8.4-10.2) mg/dL Assessment and Plan Time with Patient: Less than 30
[2023-07-17] MEDS: GABAPENTIN 300 MG CAP PO SCH (22:16)
[2023-07-17] MEDS: ATORVASTATIN 10 MG TAB PO SCH (22:16)
[2023-07-17] MEDS: OXYBUTYNIN 10 MG TAB.ER.24 PO SCH (22:16)
--- NOTE | 2023-07-18 06:45 | CA ---
Transthoracic Echo Report Name: Murali Rocha Age: 87 Gender: M : 1935 Exam Date: 07/17/2023 09:56 Exam Location: [facility] Ht (in): 73 Wt (lb): 215 Ordering Physician: Jessica Meneses Attending/Referring Phys: [id number], Zaira Schedule Announcer Anika Hernandez RDCS Procedure CPT: Indications: LVF Cardiac Hx: Technical Quality: Fair Contrast 1: Total Dose (mL): Contrast 2: Total Dose (mL): MEASUREMENTS (Male / Female) Normal Values 2D ECHO LV Diastolic Diameter PLAX 4.2 cm 4.2 - 5.9 / 3.9 - 5.3 cm LV Systolic Diameter PLAX 2.3 cm IVS Diastolic Thickness 1.6 cm 0.6 - 1.0 / 0.6 - 0.9 cm LVPW Diastolic Thickness 1.2 cm 0.6 - 1.0 / 0.6 - 0.9 cm LV Relative Wall Thickness 0.7 RV Internal Dim ED PLAX 4.2 cm LV Diastolic Volume MOD BP 172.8 cm??? 67 - 155 / 56 - 104 cm??? LV Systolic Volume MOD BP 64.7 cm??? 22 - 58 / 19 - 49 cm??? LV Ejection Fraction MOD BP 62.5 % >= 55 % LV Cardiac Index MOD BP 2440.4 cm???/min???m??? LV Diastolic Volume MOD 4C 164.1 cm??? LV Systolic Volume MOD 4C 63.9 cm??? LV Ejection Fraction MOD 4C 61.0 % LV Cardiac Index MOD 4C 2260.9 cm???/min???m??? LV Diastolic Length 4C 9.3 cm LV Systolic Length 4C 7.1 cm LV Diastolic Volume MOD 2C 165.0 cm??? LV Systolic Volume MOD 2C 65.1 cm??? LV Ejection Fraction MOD 2C 60.5 % LV Cardiac Index MOD 2C 2254.7 cm???/min???m??? LV Diastolic Length 2C 8.3 cm LV Systolic Length 2C 7.0 cm LA Volume 76.5 cm??? 18 - 58 / 22 - 52 cm??? LA Volume Index 33.9 cm???/m??? 16 - 28 cm???/m??? M-MODE Aortic Root Diameter MM 4.2 cm LA Systolic Diameter MM 3.8 cm LA Ao Ratio MM 0.9 AV Cusp Separation MM 2.5 cm DOPPLER AV Peak Velocity 171.6 cm/s AV Peak Gradient 11.8 mmHg AV Mean Velocity 105.2 cm/s AV Mean Gradient 5.0 mmHg AV Velocity Time Integral 41.6 cm AI Peak Velocity 522.3 cm/s AI Peak Gradient 109.1 mmHg AI Pressure Half Time 635.0 ms LVOT Peak Velocity 110.3 cm/s LVOT Peak Gradient 4.9 mmHg LVOT Velocity Time Integral 28.5 cm MV Area PHT 2.7 cm??? Mitral E Point Velocity 61.9 cm/s Mitral A Point Velocity 109.9 cm/s Mitral E to A Ratio 0.6 MV Deceleration Time 278.9 ms MV E' Velocity 6.2 cm/s Mitral E to MV E' Ratio 10.0 TR Peak Velocity 243.9 cm/s TR Peak Gradient 23.8 mmHg Right Ventricular Systolic Press 26.4 mmHg FINDINGS Left Ventricle Moderately increased septal wall thickness. Mildly increased left ventricular diastolic volume. Mildly increased left ventricular systolic volume. No obvious regional wall motion abnormalities. Left ventricular ejection fraction is estimated at 50-55 %. Right Ventricle Right ventricular dilatation. Right ventricular systolic pressure within normal limits. Right Atrium Mild right atrial dilatation. Left Atrium Mildly increased left atrial volume. Mildly increased left atrial area. Mitral Valve Structurally normal mitral valve. Mitral valve thickened. Mild mitral annular calcification. Mild mitral regurgitation. Aortic Valve Trileaflet aortic valve. Thickened aortic valve without stenosis. Trace to mild aortic regurgitation. Tricuspid Valve Structurally normal tricuspid valve. Mild tricuspid stenosis. Pulmonic Valve Structurally normal pulmonic valve. Trace pulmonic regurgitation. Pericardium No pericardial effusion. Aorta Normal size aortic root and proximal ascending aorta. CONCLUSIONS Normal LV systolic function Aortic sclerosis with mild aortic regurgitation Thickened mitral valve leaflets with mild MR Previewed by: Dr. Monty Feliciano MD (Electronically Signed) Final Date: 18 Jul 2023 06:44
[2023-07-18 08:08] VITALS: BP 129/75; PULSE 61; TEMP 98.1
[2023-07-18] MEDS: FINASTERIDE 5 MG TAB PO SCH (10:33)
[2023-07-18] MEDS: APIXABAN 5 MG TAB PO SCH (10:38)
[2023-07-18 11:37] VITALS: RESP 16
[2023-07-18 12:17] LABS: Glucose,Whole Blood 124 mg/dL (70-110)
--- NOTE | 2023-07-18 13:06 | P.PN ---
Subjective Progress Note Date: 07/18/23 Consult reason: sycope (bradycardia) History of present illness: History of present illness: This is an 87-year-old male patient of Dr. 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 Patient had a follow-up appointment with Dr. Umana yesterday and he was found to have a heart rate of 35. Patient states that he has had dizzy sensation when he gets up to a standing position. Patient was sent directly to the emergency center for further evaluation and treatment. Patient denies having any syncopal episodes, no chest pain and no shortness of breath. He states his heart rate often runs in the 40s and 50s but never in the 30s. Patient is not on any AV blocking agents. Patient is seen today in the emergency center waiting for a bed on the observation unit. EKG sinus rhythm with prolonged first-degree AV block Chest x-ray: No acute process WBC 5.8, hemoglobin 9.6, platelet count 144. Sodium 140, potassium 3.6, BUN 30 creatinine 1.2. Blood sugar 128. Troponin negative x 1 Home cardiac medications: Eliquis 5 mg twice daily, Lasix 20 mg daily, losartan 100 mg daily, simvastatin 20 mg at bedtime. Echocardiogram performed in the office on 08/01/2022 revealed EF of 55%. Mild aortic regurgitation. 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 Trace to mild mitral regurgitation. Trace tricuspid regurgitation. Carotid ultrasound performed on 01/23/2023 revealed right ICA 16 to 49%, left ICA 50 to 79%., Elevated velocities can be related to stent. 07/17 Yesterday, patient underwent dual-chamber permanent pacemaker implantation with Dr. Umana. His heart rate is running in the 60s to 80s. He states he is feeling better from yesterday. The device rep will be here at 1030 and if pacemaker check is unremarkable, patient will be cleared for discharge. Blood pressure 129/75. Chest x-ray reveals we ordered CT I am having trouble with everybody's phone calls for this all Far[employer] is how much all okay so. Carotid ultrasound revealed greater than 70% stenosis of the left carotid bifurcation. Less than 50% stenosis of the right carotid bifurcation. Physical examination: Gen: This is an 87-year-old male in no acute distress. VS: reviewed HEENT: Head is atraumatic, normocephalic. Pupils equal, round. Sclerae is anicteric. LUNGS: Clear to auscultation. No wheezes or rhonchi. No intercostal retractions. HEART: Regular rate and rhythm. No murmur. ABDOMEN: Soft No tenderness. EXTREMITIES: No pedal edema. No calf tenderness. NEUROLOGICAL: Patient is awake, alert and oriented x3. Assessment: Symptomatic bradycardia with prolonged first-degree AV block, sick sinus syndrome Rule out acute coronary syndrome History of hypertension Hyperlipidemia Multiple pulmonary emboli on Eliquis Left carotid stenosis status post stenting 10/2022 Plan: Continue patient's home cardiac medications Resume Eliquis Patient is cleared for discharge from cardiology after pacemaker check. Patient will follow-up with Dr. Umana in 1 week. Nurse practitioner note has been reviewed, I agree with documented findings and plan of care. Patient was seen and examined. Objective - Vital Signs Vital signs: Vital Signs Temp 98.1 F 07/18/23 07:32 Pulse 61 07/18/23 07:32 Resp 17 07/18/23 07:32 BP 129/75 07/18/23 07:32 Pulse Ox 97 07/18/23 07:32 FiO2 Intake & Output 07/17/23 07/18/23 07/18/23 18:59 06:59 18:59 Intake Total 518 118 Output Total 400 Balance 118 118 Weight 97.522 kg Intake: IV 400 Oral 118 118 Output: Urine 400 Other: Voiding Method Urinal # Voids 2 - Labs CBC & Chem 7: 07/17/23 02:35 07/17/23 02:35
--- NOTE | 2023-07-19 07:41 | P.DS ---
Providers Date of admission: 07/17/23 11:21 Attending physician: Vladislav Albert Consults: 07/16/23 22:10 Consult Physician Urgent Consulting Provider: [facility] Consult Reason/Comments: near syncope, bradycardia Do you want consulting provider notified?: Yes Primary care physician: Oscar Johansen MD Hospital Course: Final Diagnosis Symptomatic bradycardia and Sick sinus syndrome status post permanent dual chamber pacemaker History of coronary artery disease with prior PCI in 2006 History of hypertension maintained on losartan History of hyperlipidemia patient was resumed on statin therapy History of pulmonary embolism anticoagulated with Eliquis History of carotid artery stenosis History of BPH maintained on finasteride which has been resumed Discharge Disposition Patient is stable for discharge home. Patient will follow up in the device clinic in [address] Umana. Patient is discharged on all same home medications. Recommend to repeat a CBC and BMP in 2 to 3 days. Patient is instructed to keep the dressing dry for 5 days and the dressing removed at the device clinic at the first postoperative appointment. Patient is given additional instructions for the permanent pacemaker implantation on his discharge paperwork. Patient to follow up with his PCP Dr. Oscar Johansen in 2 to 3 days. Hospital Course This is a 87-year-old male with medical history of coronary artery disease with prior cardiac stenting in 2006, hypertension, hyperlipidemia, pulmonary embolism, never smoker. Patient states that he was at a routine cardiology visit with his normal dixonac operator Dr. Umana when he was noted to have a low heart rate into the 30s. Patient was sent into the hospital for further evaluation. Patient did report having a dizzy episode when he was standing at that time. He denied any syncopal episodes he has not been having any chest discomfort he denies any shortness of breath. Patient has no nausea vomiting or diarrhea no recent illness. Patient does state that his heart rate often is low but never that low and he is not on any AV blocking medications. Patient was admitted to the hospital under medicine. He was admitted to the observation unit, cardiology was consulted. Chest x-ray on admission reveals no active cardiopulmonary disease. His EKG reveals sinus bradycardia heart rate of 55 with a first-degree AV block. His blood count reveals white blood cell count of 5.9, hemoglobin 10.3, platelet count of 167. His BUN is 32 creatinine is 1.18 his blood glucose is 142. Troponin level is negative x 3 and a TSH was normal at 2.620. Patient underwent dual-chamber permanent pacemaker implantation with Dr. Umana. The device was interrogation by the device rep with no acute issues noted. Echocardiogram reveals normal LV systolic function and aortic sclerosis with mild aortic regurgitation. Carotid ultrasound revealed greater than 70% stenosis of the left carotid bifurcation. Less than 50% stenosis of the right carotid bifurcation. Patient was monitored overnight. He denies chest pain, chest pressure, shortness of breath. He denies dizziness and lightheadedness and has been up ambulating without difficulty. Hemodynamically h e is stable, heart rate running in the 60-80s. Please see medication reconciliation for a list of current medications. Thank you for allowing us to participate in the care of this patient. The impression and plan of care has been dictated by Britt Watson, Nurse Practitioner as directed. Dr. Aleks MD I have performed a history and physical examination and medical decision making of this patient, discussed the same with the dictator, and agree with the dictators assessment and plan as written, documented as a scribe. Based on total visit time, I have performed more than 50% of this visit. Patient Condition at Discharge: Stable Plan - Discharge Summary New Discharge Prescriptions: Continue Gabapentin 300 mg PO BID Apixaban [Eliquis] 5 mg PO BID Oxybutynin Chloride [oxyBUTYnin chloride ER] 10 mg PO HS Simvastatin [Zocor] 20 mg PO HS Losartan [Cozaar] 100 mg PO QAM Tamsulosin [Flomax] 0.4 mg PO HS Finasteride [Proscar] 5 mg PO QAM Furosemide [Lasix] 20 mg PO DAILY Discharge Medication List Apixaban [Eliquis] 5 mg PO BID 10/24/22 [History] Finasteride [Proscar] 5 mg PO QAM 10/24/22 [History] Gabapentin 300 mg PO BID 10/24/22 [History] Losartan [Cozaar] 100 mg PO QAM 10/24/22 [History] Oxybutynin Chloride [oxyBUTYnin chloride ER] 10 mg PO HS 10/24/22 [History] Simvastatin [Zocor] 20 mg PO HS 10/24/22 [History] Tamsulosin [Flomax] 0.4 mg PO HS 10/24/22 [History] Furosemide [Lasix] 20 mg PO DAILY 07/17/23 [History] Follow up Appointment(s)/Referral(s): Zack Umana DO [STAFF PHYSICIAN] - 07/25/23 1:30 pm (Appointment with device clinic and then Dr. Umana) Oscar Johansen MD [Primary Care Provider] - 07/26/23 1:45 pm Ambulatory/Diagnostic Orders: Basic Metabolic Panel [LAB.AMB] Time Frame: 3 Days, Location: None Selected Complete Blood Count w/diff [LAB.AMB] Location: None Selected Patient Instructions/Handouts: Bradycardia (DC), Pacemaker (DC) Activity/Diet/Wound Care/Special Instructions: PATIENT EDUCATION MATERIAL Instructions following a heart rhythm device implant. 1. Keep dressing DRY for 5 DAYS. You may cover the area with Saran or Cling Wrap, prior to a shower. 2. The dressing will be removed in the Device Clinic at [facility]. Absorbable sutures were used to close the wound. 3. Avoid raising the left arm above the shoulder level. 4 week restriction 4. Avoid arm movements, like backscratching, rubbing the head, or pulling on a cord. 4 weeks restriction 5. Gentle range of motion movements of the shoulder, closest to the incision should be performed to avoid a frozen shoulder. (Pendulum exercises of the shoulder) 6. The opposite arm may be used freely. 7. Avoid driving for 7 days. 8. Avoid activities such as golfing, swimming, weed whacking, lifting more than 10 pounds weight, bowling, gymnastics and weight training/lifting. (6 weeks restriction) 9. Activities such as wood chopping with an axe, pull-ups in the gymnasium, power lifting, arc-welding, being close to home induction cooktops will always be a problem. 10. Arm sling is only a reminder not to raise the arm above the head. You do not need to keep the arm completely immobilized. Your free to move the arm and use it and for normal activities. In case of any problems, please call [facility] [place], @ [phone], Attention: Device Clinic Device clinic follow-up in 5 days Follow-up with primary dixonac operator in 1 months Discharge Disposition: HOME SELF-CARE
== END 2023-07-18 15:04 | disposition home or self-care (01) | DRG 243 ==
LOC: EC 20:07 → 6NMEDSUR 22:11 → OBSVTOIN 07-17 11:21 → 6NMEDSUR 07-17 15:47
PROVIDERS: ADMIT Hospitalist; ATTEND Hospitalist
PROC: 02H63JZ Insertion of Pacemaker Lead into Right Atrium, Percutaneous Approach (ICD-10-PCS; 2023-07-17)
PROC: 02HK3JZ Insertion of Pacemaker Lead into Right Ventricle, Percutaneous Approach (ICD-10-PCS; 2023-07-17)
PROC: 0JH606Z Insertion of Pacemaker, Dual Chamber into Chest Subcutaneous Tissue and Fascia, Open Approach (ICD-10-PCS; principal; 2023-07-17 10:50)
DX: I49.5 Sick sinus syndrome (principal); I48.92 Unspecified atrial flutter; N17.9 Acute kidney failure, unspecified; R00.1 Bradycardia, unspecified; I44.0 Atrioventricular block, first degree; I25.10 Atherosclerotic heart disease of native coronary artery without angina pectoris; I10 Essential (primary) hypertension; E78.5 Hyperlipidemia, unspecified; I08.3 Combined rheumatic disorders of mitral, aortic and tricuspid valves; N40.0 Benign prostatic hyperplasia without lower urinary tract symptoms; Z79.01 Long term (current) use of anticoagulants; Z79.02 Long term (current) use of antithrombotics/antiplatelets; Z79.899 Other long term (current) drug therapy; Z86.711 Personal history of pulmonary embolism; Z95.5 Presence of coronary angioplasty implant and graft; Z96.641 Presence of right artificial hip joint; Z96.653 Presence of artificial knee joint, bilateral
CPT/HCPCS: 33208; 36415; 71045; 71046; 80048; 80053; 83735; 84443; 84484; 85025; 85610; 85730; 93005; 93306; 93880; 99285